=== PATIENT | female | born 1955 | race Caucasian/White ===

== ENCOUNTER 2021-02-10 18:16 | Emergency (ER) | payer OTHER ==
[~2021-02-10] VITALS: Ht 165.1 cm; Wt 78.5 kg
[~2021-02-10 18:16] MED LIST: BACTRIM DS TAB1 EACH PO; BUPROBAN150 MG PO; CALCIUM 600 +1 EACH PO; CHOLESTYRAMINE P4 GM PO; CIPROFLOXACIN500 MG PO; HYDROCHLOROTHIA25 MG PO; IBUPROFEN800 MG PO; LISINOPRIL20 MG PO; LISINOPRIL40 MG; LOPERAMIDE2 MG PO; METOPROLOL SUCC50 MG PO; MULTIVITAMINS1 EAC7 PO; NORCO 5-325 TA1 EACH PO; SIMVASTATIN20 MG PO; VICODIN 5-3001 EACH; VICODIN 5-3001 EACH PO; VITAMIN D5000 UNIT PO; ZESTORETIC 20-251 EA
[2021-02-10] MEDS ORDERED: LISINOPRIL-HCT1 EACH PO (18:46)
[2021-02-10] MEDS ORDERED: ATORVASTATIN CA20 MG PO (18:46)
== END 2021-02-10 19:39 | disposition home or self-care (01) ==
LOC: ED 18:16
DX: B34.9 Viral infection, unspecified (principal); Z20.822 Contact with and (suspected) exposure to COVID-19; I10 Essential (primary) hypertension; E78.00 Pure hypercholesterolemia, unspecified; Z79.899 Other long term (current) drug therapy
CPT/HCPCS: 99284; C9803; U0003